=== PATIENT | male | born 2000 | race Caucasian/White ===

== ENCOUNTER → 2021-12-10 07:35 | Outpatient (CLI) | payer OTHER, SELFPAY ==
--- NOTE | 2021-12-10 | DI.NM.S_ITS ---
PROCEDURE: NM GASTRIC EMPTYING STUDY RADIOPHARMACEUTICAL: 1.0 mCi Tc-99m sulfur colloid in an egg sandwich. INDICATIONS: Unspecified abdominal pain TECHNIQUE: A Tc-99m labeled sulfur colloid labeled egg sandwich or oatmeal was served to the patient. Anterior and posterior planar images of the abdomen were obtained at 0 minutes and 30 minutes, then at hourly intervals up to 4 hours. The patient was upright and ambulating during the interval. COMPARISON: None. FINDINGS: The stomach has normal size, morphology, and position. There is normal emptying of solid gastric contents from the stomach by visual inspection. No gastroesophageal reflux is visualized. The percentage of tracer retained at specific time points are as follows: Time point Percent gastric retention Normal range 30 minutes 60% 70% or more 1 hour 20% 30% to 90% 2 hours 8% 60% or less 3 hours 0 30% or less 4 hours 0 10% or less IMPRESSION: Decreased gastric retention compared to normal range suggestive gastric emptying. Dictated by: Patti Jerome M.D. on 12/10/2021 at 21:09 Approved by: Patti Jerome M.D. on 12/10/2021 at 21:10
== END ==
PROVIDERS: Referring Provider Internal Medicine Gastroenterology; Visit Provider Internal Medicine Gastroenterology
DX: R10.9 Unspecified abdominal pain (principal); R11.0 Nausea
CPT/HCPCS: 78264; A9541